=== PATIENT | male | born 1955 | race Two or more races ===

== ENCOUNTER 2020-07-25 13:14 | Emergency (ER) | payer SELFPAY ==
[~2020-07-25] VITALS: Ht 177.8 cm; Wt 91.2 kg
--- NOTE | 2020-07-25 13:20 | NUR ---
BIB [facility],PASSED OUT INFRONT OH HIS HOUSE PER NEIGHBOR,ETOH. PATIENT SLEEPING, BUT EASILY AROUSABLE. NO DISTRESS NOTED. SITTER AT BEDSIDE FOR SAFETY.
--- NOTE | 2020-07-25 13:31 | NUR ---
RENETTA SHUKLA [phone]
--- NOTE | 2020-07-25 14:14 | NUR ---
phleb at bedside
[2020-07-25 14:23] LABS: BASOPHILS % (AUTO) 0.4 % (0.0-2.0); EOSINOPHILS % (AUTO) 0.5 % (0.0-6.0); HEMATOCRIT 44 % (39-51); HEMOGLOBIN 15.6 g/dL (13.5-17.5); LYMPHOCYTES # (AUTO) 2.8 /CMM (0.8-4.8); LYMPHOCYTES % (AUTO) 44.7 % (20.0-44.0); MEAN CORPUSCULAR HGB CONC 36 g/dl (31.0-36.0); MEAN CORPUSCULAR VOLUME 102 fL (80-96); MONOCYTES # (AUTO) 0.5 /CMM (0.1-1.30); MONOCYTES % (AUTO) 8.7 % (2.0-12.0); NEUTROPHILS # (AUTO) 2.9 /CMM (1.8-8.9); NEUTROPHILS % (AUTO) 45.7 % (43.0-81.0); PLATELET COUNT (AUTO) 227 /CMM (150-450); RED BLOOD CELL COUNT(AUTO) 4.26 MIL/uL (4.5-6.0); WHITE BLOOD COUNT (AUTO) 6.3 K/uL (4.3-11.0)
[2020-07-25 14:32] LABS: ALANINE AMINOTRANSFERASE 66 U/L (12-78); ALBUMIN 3.9 g/dL (3.4-5.0); ALCOHOL, BLOOD 461 mg/dL (0-0); ALKALINE PHOSPHATASE 109 U/L (46-116); ASPARTATE AMINOTRANSFERASE 61 U/L (15-37); BILIRUBIN,DIRECT 0.2 mg/dL (0.0-0.2); BILIRUBIN,TOTAL 0.5 mg/dL (0.2-1.0); CALCIUM, SERUM 8.4 mg/dL (8.5-10.1); CARBON DIOXIDE 29 mmol/L (21-32); CHLORIDE 108 mmol/L (98-107); CREATININE 0.8 mg/dL (0.6-1.3); GLUCOSE 84 mg/dL (74-106); POTASSIUM 3.3 mmol/L (3.5-5.1); SODIUM SERUM 147 mmol/L (136-145); TOTAL PROTEIN, SERUM 7.7 g/dL (6.4-8.2); UREA NITROGEN, BLOOD 4 mg/dL (7-18)
[2020-07-25 14:33] LABS: ACETAMINOPHEN < 10 ug/ml (10-30)
[2020-07-25 15:31] LABS: BILIRUBIN,URINE Negative (NEGATIVE); COLOR,URINE YELLOW (YELLOW); LEUKOCYTE ESTERASE ,URINE Negative (NEGATIVE); NITRITE, URINE Negative (NEGATIVE); PROTEIN,URINE Negative (NEGATIVE); UGLUCOSE Negative (NEGATIVE); UROBILINOGEN,URINE 0.2 EU/dL (0.2)
--- NOTE | 2020-07-25 16:12 | NUR ---
Social Service Consult: learning support services director consult requested for ETOH use. Patient is a 65-year-old, male. SW met with the patient at his hospital bed in the emergency department. Patient is alert and oriented x3. When asked about reason for current hospitalization, patient stated I dont know what happened. Patient presented disheveled and patients clothing was observed to be stained. Per patients chart, patient was brought in by ambulance to the emergency department on 07/25/2020 for ETOH use. Patient was unable to state what triggers led to his alcohol use. SW asked the patient about his history of alcohol use and patient stated that he has around 6-7 beers per day. Patient denies any history of drug use. Patient stated that he currently lives at [address] [place] [address]. Patient was unable to provide this SW with his contact information and stated, I dont know. Patient stated that he is currently employed. Patient stated that he is independent with his ADLs. Patient denies any history of mental illness and denies current thoughts of suicide or homicide. SW discussed discharge plans with the patient and patient stated that he will be returning to prior living arrangements. SW offered addiction resources for alcohol to the patient, and patient declined. PLAN: Patient will return to his home once he is medically cleared and stable. No further SS interventions at this time however, SW will remain available as needed.
--- NOTE | 2020-07-25 20:17 | NUR ---
PATIENT IS RECEIVED BY THE FAMILY (DAUGHTER AND SON). PATIENT IS AMBULATORY WITH A STEADY GAIT. PATIENT IS AAOX4.
--- NOTE | 2020-07-25 20:17 | NUR ---
Patient discharged to home in stable condition. Written and verbal after care instructions given. Patient verbalizes understanding of instruction.
[2020-07-25] MEDS ORDERED: POTASSIUM CHLORIDE 20 MEQ TAB.PRT.SR PO ONE ×2 (20:30)
[2020-07-25 21:23] VITALS: BP 132/81
== END 2020-07-25 20:17 | disposition home or self-care (01) ==
LOC: ER 13:17
DX: F10.129 Alcohol abuse with intoxication, unspecified (principal); F29 Unspecified psychosis not due to a substance or known physiological condition; Y90.9 Presence of alcohol in blood, level not specified
CPT/HCPCS: 36415; 70450-TC; 80048-TC; 80076-TC; 85025-TC; G0480